=== PATIENT | female | born 1945 | race Two or more races ===

== ENCOUNTER 2016-10-18 06:37 | Inpatient (IN) | payer MEDICARE, BC ==
[~2016-10-18 06:37] MED LIST: ALOE VERA5000 MG PO; ANTIVERT25 MG PO; ASPIR 8181 MG; ATENOLOL50 M1 PO; ATENOLOL50 MG PO; AUGMENTIN 875-1 EAC2 PO; CALCIUM 600 +1 EA16 PO; CALCIUM 600 MG1 EACH PO; CENTRUM SILVER1 EAC6 PO; CRANBERRY PLUS1 EAC3 PO; CRESTOR10 MG; FISH OIL 1,2001 EAC4 PO; HYZAAR 100-25 T1 TAB PO; LORAZEPAM0.5 M1 PO; LORAZEPAM0.5 MG PO; LOSARTAN-HCTZ1 EAC5 PO; MAGNESIUM OXID400 M1 PO; MULTI VITAMIN1 EACH PO; NONI PO; NORVASC2.5 MG; NORVASC5 M1 PO; NORVASC5 M2 PO; OMEPRAZOLE20 M3 PO; POTASSIUM CHLO10 ME2 PO; TYLENOL325 M1 PO; ULTRAM50 M1 PO; ULTRAM50 MG PO; VITAMIN D31000 UNI2 PO; VITAMIN E400 UNI2 PO; VITAMIN E400 UNI4 PO
[2016-10-18 07:04] LABS: BASO % 0.4 % (0-2); EOS % 2.1 % (0-7); EOSINOPHIL ABSOLUTE COUNT 0.1 tho/cmm (0.0-0.7); HCT-HEMATOCRIT 26.9 % (34.0-49.0); HGB-HEMOGLOBIN 9.2 gm/dl (12.0-15.5); IMMATURE GRANULOCYTES ABSOLUTE 0.04 tho/cmm (0-0.03); IMMATURE GRANULOCYTES PERCENT 1.7 % (0-0.3); LYMPH % 26.1 % (20-45); LYMPH ABSOLUTE COUNT 0.6 tho/cmm (0.8-4.5); MCH (MEAN CORPUSCULAR HGB) 30.1 pg (28.0-32.0); MCHC MEAN CORPUSCULAR HGB CONC 34.2 % (32.0-36.0); MCV (MEAN CELL VOLUME) 87.9 fl (82.0-96.0); MONOCYTE ABSOLUTE COUNT 0.2 tho/cmm (0.0-1.2); NEUTROPHIL ABSOLUTE COUNT 1.5 tho/cmm (1.6-8.0); NEUTROPHIL-AUTOMATED 1.5 tho/cmm (1.6-8.0); NEUTROPHILS % 61.7 % (40-80); RED BLOOD COUNT 3.06 mil/cmm (4.00-5.20); RED CELL DISTRIBUTION WIDTH 14.7 % (12.4-16.4); WHITE BLOOD COUNT 2.4 tho/cmm (4.0-10.0)
[2016-10-18 07:27] LABS: ALB/GLOB RATIO 0.9 (0.8-2.0); ALBUMIN 3.1 g/dl (3.5-5.0); ALKALINE PHOSPHATASE 157 U/L (33-138); ALT/SGPT 159 U/L (12-78); ANION GAP 13 mmol/L (0-20); AST/SGOT 157 U/L (10-40); BILIRUBIN,TOTAL 1.2 mg/dl (0-1.5); BLOOD UREA NITROGEN 36 mg/dl (6-24); C-REACTIVE PROTEIN 4.6 mg/dl (0-0.9); CALCIUM 8.6 mg/dl (8.5-10.5); CARBON DIOXIDE-VENOUS 28 mmol/L (22-32); CHLORIDE 100 mmol/l (96-110); CREATININE 1.21 mg/dl (0.50-1.10); GLUCOSE 114 mg/dL (70-110); LIPASE 173 U/L (73-393); POTASSIUM 3.5 mmol/L (3.7-5.1); SODIUM 137 mmol/L (135-145); eGFR VALUE FOR BLACK 53 mL/Min
[2016-10-18 08:11] LABS: PLATELET COUNT 94 tho/cmm (150-450)
[2016-10-18 09:25] LABS: URINE APPEARANCE HAZY; URINE BILIRUBIN NEGATIVE (NEG); URINE BLOOD LARGE (NEG); URINE COLOR DARK YELLOW; URINE GLUCOSE (UA) NEGATIVE (NEG); URINE KETONE SMALL (NEG); URINE LEUKOCYTE ESTERASE NEGATIVE (NEG); URINE NITRITE NEGATIVE (NEG); URINE PH 6.5 (5.0-8.0); URINE PROTEIN LARGE (NEG)
[2016-10-18 09:39] LABS: URINE BACTERIA 1+; URINE WBC 0-3 /[HPF] (0-5)
[2016-10-18] MEDS ORDERED: PROCHLORPERAZIN10 M1 PO (14:21)
[2016-10-18] MEDS ORDERED: TRAMADOL HCL50 M2 PO (14:21)
[2016-10-18] MEDS ORDERED: TYLENOL325 M2 PO (14:21)
[2016-10-18] MEDS ORDERED: ZYPREXA2.5 M1 PO (14:21)
[2016-10-19 03:43] LABS: HGB-HEMOGLOBIN 7.3 gm/dl (12.0-15.5); MCH (MEAN CORPUSCULAR HGB) 29.8 pg (28.0-32.0); NEUTROPHIL-AUTOMATED 1.1 tho/cmm (1.6-8.0); RED BLOOD COUNT 2.45 mil/cmm (4.00-5.20); RED CELL DISTRIBUTION WIDTH 14.9 % (12.4-16.4); WHITE BLOOD COUNT 2.4 tho/cmm (4.0-10.0)
[2016-10-19 03:54] LABS: BASO % 0.8 % (0-2); EOS % 0.8 % (0-7); HCT-HEMATOCRIT 21.8 % (34.0-49.0); IMMATURE GRANULOCYTES ABSOLUTE 0.12 tho/cmm (0-0.03); LYMPH % 39.6 % (20-45); MCHC MEAN CORPUSCULAR HGB CONC 33.5 % (32.0-36.0); MONO % 9.2 % (0-12); MONOCYTE ABSOLUTE COUNT 0.2 tho/cmm (0.0-1.2); NEUTROPHIL ABSOLUTE COUNT 1.1 tho/cmm (1.6-8.0); NEUTROPHILS % 44.6 % (40-80)
[2016-10-19 04:08] LABS: ALB/GLOB RATIO 0.8 (0.8-2.0); ALBUMIN 2.5 g/dl (3.5-5.0); ALKALINE PHOSPHATASE 200 U/L (33-138); ALT/SGPT 150 U/L (12-78); ANION GAP 10 mmol/L (0-20); AST/SGOT 132 U/L (10-40); BILIRUBIN,TOTAL 0.6 mg/dl (0-1.5); BLOOD UREA NITROGEN 33 mg/dl (6-24); CALCIUM 8.1 mg/dl (8.5-10.5); CARBON DIOXIDE-VENOUS 29 mmol/L (22-32); CHLORIDE 103 mmol/l (96-110); CREATININE 1.32 mg/dl (0.50-1.10); GLUCOSE 101 mg/dL (70-110); POTASSIUM 3.3 mmol/L (3.7-5.1); SODIUM 139 mmol/L (135-145); eGFR VALUE FOR BLACK 48 mL/Min
[2016-10-19 04:15] LABS: PLATELET COUNT 49 tho/cmm (150-450)
[2016-10-19] MEDS ORDERED: CATAPRES0.1 M1 PO (11:04)
== END 2016-10-19 12:25 | DRG 304 ==
LOC: EDMED 06:37 → EMR2 09:54 → 5WF 10:15
PROVIDERS: Emergency Medicine; ADMIT Internal Medicine
DX: I16.0 Hypertensive urgency (principal); D61.810 Antineoplastic chemotherapy induced pancytopenia; N17.9 Acute kidney failure, unspecified; C78.7 Secondary malignant neoplasm of liver and intrahepatic bile duct; C77.9 Secondary and unspecified malignant neoplasm of lymph node, unspecified; C79.00 Secondary malignant neoplasm of unspecified kidney and renal pelvis; C56.9 Malignant neoplasm of unspecified ovary; T45.1X5A Adverse effect of antineoplastic and immunosuppressive drugs, initial encounter; G62.0 Drug-induced polyneuropathy; K21.9 Gastro-esophageal reflux disease without esophagitis; Z88.0 Allergy status to penicillin; Z88.8 Allergy status to other drugs, medicaments and biological substances; E87.6 Hypokalemia; Z66 Do not resuscitate
CPT/HCPCS: J0360; J0780; J1200; J1650; J2270; J7030

== ENCOUNTER 2016-10-28 15:27 | Inpatient (IN) | payer MEDICARE, BC ==
[~2016-10-28 15:27] MED LIST changes: +CATAPRES0.1 M1 PO; +PROCHLORPERAZIN10 M1 PO; +TRAMADOL HCL50 M2 PO; +TYLENOL325 M2 PO; +ZYPREXA2.5 M1 PO
[2016-10-28] MEDS ORDERED: LASIX20 M1 PO (15:33)
[2016-10-28] MEDS ORDERED: HYDRALAZINE HCL25 M1 PO ×2 (15:33→15:51)
[2016-10-28] MEDS ORDERED: COZAAR100 M1 PO (15:34)
[2016-10-28] MEDS ORDERED: ZANTAC150 M1 PO (16:25)
[2016-10-29 05:39] LABS: BASO % 0.4 % (0-2); EOS % 0.9 % (0-7); HCT-HEMATOCRIT 24.3 % (34.0-49.0); IMMATURE GRANULOCYTES ABSOLUTE 0.01 tho/cmm (0-0.03); IMMATURE GRANULOCYTES PERCENT 0.2 % (0-0.3); LYMPH % 20.2 % (20-45); LYMPH ABSOLUTE COUNT 0.9 tho/cmm (0.8-4.5); MCH (MEAN CORPUSCULAR HGB) 29.4 pg (28.0-32.0); MCHC MEAN CORPUSCULAR HGB CONC 32.9 % (32.0-36.0); MCV (MEAN CELL VOLUME) 89.3 fl (82.0-96.0); MEAN PLATELET VOLUME 9.6 cmc (9.4-12.4); MONO % 14.8 % (0-12); MONOCYTE ABSOLUTE COUNT 0.7 tho/cmm (0.0-1.2); NEUTROPHIL ABSOLUTE COUNT 2.9 tho/cmm (1.6-8.0); NEUTROPHIL-AUTOMATED 2.9 tho/cmm (1.6-8.0); NEUTROPHILS % 63.5 % (40-80); PLATELET COUNT 139 tho/cmm (150-450); RED BLOOD COUNT 2.72 mil/cmm (4.00-5.20); RED CELL DISTRIBUTION WIDTH 17.2 % (12.4-16.4); WHITE BLOOD COUNT 4.6 tho/cmm (4.0-10.0)
[2016-10-29 05:54] LABS: ALB/GLOB RATIO 0.7 (0.8-2.0); ALBUMIN 2.4 g/dl (3.5-5.0); ALKALINE PHOSPHATASE 170 U/L (33-138); ALT/SGPT 23 U/L (12-78); ANION GAP 11 mmol/L (0-20); AST/SGOT 34 U/L (10-40); BILIRUBIN,TOTAL 0.6 mg/dl (0-1.5); BLOOD UREA NITROGEN 20 mg/dl (6-24); CALCIUM 7.9 mg/dl (8.5-10.5); CARBON DIOXIDE-VENOUS 27 mmol/L (22-32); CHLORIDE 105 mmol/l (96-110); GLUCOSE 102 mg/dL (70-110); POTASSIUM 3.4 mmol/L (3.7-5.1); SODIUM 140 mmol/L (135-145); eGFR VALUE FOR BLACK 41 mL/Min
[2016-10-30 05:26] LABS: HGB-HEMOGLOBIN 7.5 gm/dl (12.0-15.5); PLATELET COUNT 116 tho/cmm (150-450)
[2016-10-31 06:09] LABS: ANION GAP 12 mmol/L (0-20); BLOOD UREA NITROGEN 17 mg/dl (6-24); CALCIUM 8.5 mg/dl (8.5-10.5); CARBON DIOXIDE-VENOUS 27 mmol/L (22-32); CHLORIDE 107 mmol/l (96-110); CREATININE 1.32 mg/dl (0.50-1.10); GLUCOSE 99 mg/dL (70-110); POTASSIUM 3.4 mmol/L (3.7-5.1); SODIUM 143 mmol/L (135-145); eGFR VALUE FOR BLACK 48 mL/Min
[2016-10-31 23:06] LABS: URINE BILIRUBIN NEGATIVE (NEG); URINE BLOOD SMALL (NEG); URINE GLUCOSE (UA) NEGATIVE (NEG); URINE KETONE NEGATIVE (NEG); URINE LEUKOCYTE ESTERASE NEGATIVE (NEG); URINE NITRITE NEGATIVE (NEG); URINE PROTEIN LARGE (NEG)
[2016-10-31 23:07] LABS: URINE APPEARANCE CLEAR; URINE COLOR YELLOW
[2016-10-31 23:21] LABS: URINE AMORPHOUS 1+; URINE EPITHELIAL CELLS 0 /[HPF] (0-10); URINE RBC RARE /[HPF] (0-5); URINE WBC 0 /[HPF] (0-5)
[2016-11-01 04:02] LABS: BASO % 0.3 % (0-2); EOS % 0.2 % (0-7); HCT-HEMATOCRIT 30.3 % (34.0-49.0); IMMATURE GRANULOCYTES ABSOLUTE 0.02 tho/cmm (0-0.03); IMMATURE GRANULOCYTES PERCENT 0.3 % (0-0.3); LYMPH ABSOLUTE COUNT 0.9 tho/cmm (0.8-4.5); MCH (MEAN CORPUSCULAR HGB) 28.9 pg (28.0-32.0); MCV (MEAN CELL VOLUME) 87.6 fl (82.0-96.0); MEAN PLATELET VOLUME 9.7 cmc (9.4-12.4); MONO % 9.7 % (0-12); MONOCYTE ABSOLUTE COUNT 0.6 tho/cmm (0.0-1.2); NEUTROPHIL ABSOLUTE COUNT 4.3 tho/cmm (1.6-8.0); NEUTROPHIL-AUTOMATED 4.3 tho/cmm (1.6-8.0); NEUTROPHILS % 73.5 % (40-80); PLATELET COUNT 156 tho/cmm (150-450); RED BLOOD COUNT 3.46 mil/cmm (4.00-5.20); RED CELL DISTRIBUTION WIDTH 16.5 % (12.4-16.4); WHITE BLOOD COUNT 5.9 tho/cmm (4.0-10.0)
[2016-11-01 04:19] LABS: ALBUMIN 2.9 g/dl (3.5-5.0); ANION GAP 14 mmol/L (0-20); BLOOD UREA NITROGEN 21 mg/dl (6-24); CALCIUM 8.9 mg/dl (8.5-10.5); CARBON DIOXIDE-VENOUS 27 mmol/L (22-32); CHLORIDE 101 mmol/l (96-110); GLUCOSE 120 mg/dL (70-110); PHOSPHOROUS 4.3 mg/dl (2.5-4.9); POTASSIUM 3.4 mmol/L (3.7-5.1); SODIUM 139 mmol/L (135-145); eGFR VALUE FOR BLACK 35 mL/Min
[2016-11-01 04:22] LABS: TSH-THYROID STIMULATING HORM. 2.89 uIU/ml (0.40-3.80)
[2016-11-01 20:26] LABS: URINE BILIRUBIN NEGATIVE (NEG); URINE BLOOD SMALL (NEG); URINE GLUCOSE (UA) NEGATIVE (NEG); URINE KETONE NEGATIVE (NEG); URINE LEUKOCYTE ESTERASE NEGATIVE (NEG); URINE NITRITE NEGATIVE (NEG); URINE PROTEIN LARGE (NEG); URINE SPECIFIC GRAVITY 1.015 (1.003-1.030)
[2016-11-01 20:29] LABS: URINE APPEARANCE HAZY; URINE COLOR YELLOW
[2016-11-01 20:34] LABS: URINE AMORPHOUS 2+; URINE BACTERIA 1+; URINE EPITHELIAL CELLS 0-3 /[HPF] (0-10)
[2016-11-01 20:46] LABS: URINE PRT/CR RATIO 4.4 Ratio (0.0-0.20)
[2016-11-01 20:47] LABS: URINE TOTAL PROTEIN-RANDOM 664.6 mg/dl (<11.8)
[2016-11-02 04:31] LABS: ALBUMIN 2.3 g/dl (3.5-5.0); ANION GAP 14 mmol/L (0-20); BLOOD UREA NITROGEN 24 mg/dl (6-24); CALCIUM 8.2 mg/dl (8.5-10.5); CARBON DIOXIDE-VENOUS 27 mmol/L (22-32); CHLORIDE 103 mmol/l (96-110); CREATININE 1.83 mg/dl (0.50-1.10); GLUCOSE 102 mg/dL (70-110); PHOSPHOROUS 3.6 mg/dl (2.5-4.9); POTASSIUM 3.5 mmol/L (3.7-5.1); SODIUM 140 mmol/L (135-145); eGFR VALUE FOR BLACK 32 mL/Min
[2016-11-03 04:47] LABS: HGB-HEMOGLOBIN 9.2 gm/dl (12.0-15.5); PLATELET COUNT 157 tho/cmm (150-450)
[2016-11-03] MEDS ORDERED: CATAPRES-TTS 11 EACH TD (12:20)
[2016-11-03] MEDS ORDERED: HYDRALAZINE HCL25 M1 PO (12:20)
[2016-11-03] MEDS ORDERED: COREG25 M1 PO (12:21)
== END 2016-11-03 16:40 | DRG 304 ==
LOC: EDMED 15:27 → EMR2 19:28 → 5WF 21:00 → PCUA 10-31 16:22
PROVIDERS: Internal Medicine; ADMIT Internal Medicine
PROC: 30233N1 Transfusion of Nonautologous Red Blood Cells into Peripheral Vein, Percutaneous Approach (ICD-10-PCS; principal; 2016-10-30)
DX: I16.0 Hypertensive urgency (principal); G93.40 Encephalopathy, unspecified; N17.9 Acute kidney failure, unspecified; C78.7 Secondary malignant neoplasm of liver and intrahepatic bile duct; C77.9 Secondary and unspecified malignant neoplasm of lymph node, unspecified; C79.00 Secondary malignant neoplasm of unspecified kidney and renal pelvis; T45.1X5A Adverse effect of antineoplastic and immunosuppressive drugs, initial encounter; K21.9 Gastro-esophageal reflux disease without esophagitis; Z88.8 Allergy status to other drugs, medicaments and biological substances; Z88.0 Allergy status to penicillin; Z66 Do not resuscitate; I12.9 Hypertensive chronic kidney disease with stage 1 through stage 4 chronic kidney disease, or unspecified chronic kidney disease; N18.9 Chronic kidney disease, unspecified; G62.9 Polyneuropathy, unspecified; Z85.43 Personal history of malignant neoplasm of ovary; D63.8 Anemia in other chronic diseases classified elsewhere
CPT/HCPCS: J0360; J1200; J1650; J1940; J2060; J2270; J2405; J2765; J3480; J7050; P9016